=== PATIENT | female | born 1955 | race Caucasian/White ===

== ENCOUNTER 2016-09-30 11:30 | Day surgery (SDC) | payer BC ==
[~2016-09-30] VITALS: Ht 152.4 cm; Wt 54.5 kg
[2016-09-30 12:32] LABS: HEMATOCRIT 45.2 % (36.0-48.0); HEMOGLOBIN 15.5 g/dL (12-16); MCH 30.6 pg (26.0-34.0); MCHC 34.3 g/dL (31.0-37.0); MCV 89.2 fL (80.0-100.0); MEAN PLATELET VOLUME 10.4 fL (7.4-10.4); RBC 5.07 10x6/uL (4.00-5.40); RDW 13.4 % (11.5-14.5); WBC 5.2 10x3/uL (4.8-10.8)
[2016-09-30] MEDS ORDERED: VIVELLE-DO.0375 MG/2 TD (13:20)
[2016-09-30] MEDS ORDERED: COLACE100 MG PO (13:20)
[2016-09-30] MEDS ORDERED: MINOCIN100 MG PO (13:21)
[2016-09-30] MEDS ORDERED: ALEVE220 MG PO (13:21)
[2016-09-30] MEDS ORDERED: VOLTAREN75 MG PO (13:21)
[2016-09-30 13:22] VITALS: BP 136/80; Ht 152.4 cm; Wt 54.5 kg
--- NOTE | 2016-10-05 12:04 | OP ---
PATIENT NAME: GUILLERMINA YANEZ BERTA MEDICAL RECORD: [id number] :57 LOCATION:[facility] ADMISSION DATE: SURGEON: TARIK JOHNSON DO DATE OF OPERATION: 09/30/2016 PROCEDURE: Colonoscopy. ENDOSCOPIST: Tarik Johnson DO. SCOPE: Olympus video pediatric colonoscope. MEDICATIONS: Propofol 220 mg IV per anesthesia. INDICATION FOR PROCEDURE: Screening colonoscopy with a history of colon polyps. FINDINGS: Informed consent was given. The patient was made comfortable with the above medication. After reaching an adequate level of sedation by slow IV push, the patient was placed on her left side. The endoscope was then advanced under direct visualization through the rectum to the cecum. The ileocecal valve, appendiceal orifice, and cecal folds were visualized. Scope was then slowly withdrawn while the mucosa was carefully looked at. There were no polyps visualized on this examination. Retroflexion was performed in the rectum and some medium nonbleeding internal hemorrhoids were visualized. There were a few extremely small mouth diverticuli present in the sigmoid colon. IMPRESSION: 1. Diverticulosis. 2. Internal hemorrhoids, not bleeding. PLAN AND RECOMMENDATIONS: 1. Discharge home when recovery parameters are met. 2. Continue current medications. 3. High fiber diet. 4. Recall colonoscopy in 5-7 years. TRANSINT:[id number] Voice Confirmation ID: [id number] DOCUMENT ID: [id number] TARIK JOHNSON DO at 1204 CC: [id number] DICTATION DATE: 09/30/16 1457 SIGN LANGUAGE TRANSLATOR: 09/30/16 1530 [facility] [place] 09/30/[address] [id number]
== END 2016-09-30 15:47 | disposition home or self-care (01) ==
LOC: D.OPS 11:30
PROVIDERS: Anesthesiology
DX: Z12.11 Encounter for screening for malignant neoplasm of colon (principal); Z86.010 Personal history of colon polyps; M19.90 Unspecified osteoarthritis, unspecified site; K64.8 Other hemorrhoids; K57.90 Diverticulosis of intestine, part unspecified, without perforation or abscess without bleeding

== ENCOUNTER → 2017-05-18 16:34 | Outpatient (CLI) | payer BC ==
[2016-09-30 13:22] VITALS: BMI 23.4
[~2017-05-18 16:34] MED LIST: ALEVE220 MG PO; COLACE100 MG PO; MINOCIN100 MG PO; VIVELLE-DO.0375 MG/2 TD; VOLTAREN75 MG PO
== END | disposition home or self-care (01) ==
LOC: D.MAMMO
DX: Z12.31 Encounter for screening mammogram for malignant neoplasm of breast (principal)

== ENCOUNTER → 2018-08-25 18:36 | Outpatient (CLI) | payer BC ==
[2016-09-30 13:22] VITALS: BMI 23.4
== END | disposition home or self-care (01) ==
LOC: D.MAMMO 15:00
DX: Z12.31 Encounter for screening mammogram for malignant neoplasm of breast (principal)

== ENCOUNTER → 2019-12-05 09:00 | Outpatient (CLI) | payer BC ==
[2016-09-30 13:22] VITALS: BMI 23.4
== END | disposition home or self-care (01) ==
LOC: D.MAMMO 09:00
PROVIDERS: ATTEND Family Medicine
DX: Z12.31 Encounter for screening mammogram for malignant neoplasm of breast (principal)

== ENCOUNTER 2020-12-09 17:30 | Outpatient (CLI) | payer BC ==
[2016-09-30 13:22] VITALS: BMI 23.4
== END 2020-12-09 23:59 | disposition home or self-care (01) ==
LOC: D.MAMMO 17:30
PROVIDERS: ATTEND Family Medicine
DX: Z12.31 Encounter for screening mammogram for malignant neoplasm of breast (principal)